=== PATIENT | female | born 1940 | race Caucasian/White ===

== ENCOUNTER 2020-05-03 07:07 | Day surgery (SDC) | payer OTHER ==
[~2020-05-03 07:07] MED LIST: CALTRATE 600600 MG; CREON 10 CAPSU249 MG; INSULIN SYR1 DIS.S10; LIPITOR40 MG; LISINOPRIL10 MG; NEURONTIN300 MG; PRELONE15 MG/5 ML; PRESERVISION AR1 CAP; REGLAN5 MG/ML; [UNRECOGNIZED DRUG - OTHER]
== END 2020-05-03 13:25 | disposition home or self-care (01) ==
LOC: CIR.AMB 07:07
PROVIDERS: ATTEND Orthopaedic Surgery Hand Surgery
DX: S52.572A Other intraarticular fracture of lower end of left radius, initial encounter for closed fracture (principal); Z20.828 Contact with and (suspected) exposure to other viral communicable diseases
CPT/HCPCS: 25118; 25280; 25609; C1771

== ENCOUNTER 2020-06-06 14:17 | Emergency (ER) | payer OTHER ==
[~2020-06-06] VITALS: Ht 154.9 cm; Wt 69.9 kg
[2020-06-06] MEDS ORDERED: HUMALOG100 UNIT/2 (15:12)
[2020-06-06] MEDS ORDERED: KETO10TA2 PO (15:27)
[2020-06-06] MEDS ORDERED: CELEBREX100 MG PO (15:27)
== END 2020-06-06 16:39 | disposition home or self-care (01) ==
LOC: ER 14:17
DX: S42.292A Other displaced fracture of upper end of left humerus, initial encounter for closed fracture (principal); M79.602 Pain in left arm; W18.09XA Striking against other object with subsequent fall, initial encounter; Y93.89 Activity, other specified; Y92.018 Other place in single-family (private) house as the place of occurrence of the external cause; Y99.8 Other external cause status